=== PATIENT | female | born 1960 | race Caucasian/White ===

== ENCOUNTER → 2016-06-21 | Outpatient (CLI) | payer BC ==
[~2016-06-21] VITALS: Ht 147.3 cm; Wt 63.5 kg
[~2016-06-21] MED LIST: ATIVAN1 MG PO; CILOSTAZOL50 MG PO; CIPRO500 MG PO; DILAUDID4 MG PO; ENULOSE10 GM/15 M PO; FLAGYL500 MG PO; LEVOXYL75 MCG PO; LINZESS290 MCG PO; PROTONIX40 MG PO; RESTASIS 01 DROP/0.4 BOTH EYES; ZOFRAN4 MG PO; ZYRTEC10 M3 PO; ZYRTEC10 MG PO
== END | disposition home or self-care (01) ==
LOC: OPR 10:30 → MRI 12:10 → OPR 06-26 11:00 → MRI 06-26 12:00 → OPR 06-27 11:00
DX: I35.0 Nonrheumatic aortic (valve) stenosis (principal)
CPT/HCPCS: 73725